=== PATIENT | female | born 1960 | race Caucasian/White ===

== ENCOUNTER → 2017-08-30 | Outpatient (CLI) | payer OTHER ==
[2017-09-01 11:39] LABS: HPV Genotype 16 Not Detected (NOTDET); HPV Genotype 18 Not Detected (NOTDET)
[2017-09-11 10:31] LABS: HPV High Risk Other Not Detected (NOTDET)
== END | disposition home or self-care (01) ==
LOC: OLS 13:52
PROVIDERS: Nurse Practitioner Women's Health
DX: Z12.4 Encounter for screening for malignant neoplasm of cervix (principal); Z91.89 Other specified personal risk factors, not elsewhere classified
CPT/HCPCS: 87624; G0123

== ENCOUNTER → 2018-08-31 | Outpatient (CLI) | payer OTHER ==
[2018-09-04 15:09] LABS: HPV 16 Negative (Negative); HPV 18 Negative (Negative); HPV OTHER HR TYPES Negative (Negative)
== END | disposition home or self-care (01) ==
LOC: LAB SHORT 12:54 → LAB 12:54
PROVIDERS: Nurse Practitioner Women's Health
DX: Z12.4 Encounter for screening for malignant neoplasm of cervix (principal); Z91.89 Other specified personal risk factors, not elsewhere classified
CPT/HCPCS: 87624; G0123

== ENCOUNTER → 2019-06-13 | Outpatient (CLI) | payer OTHER | END | disposition home or self-care (01) | LOC: PLD 12:13 → LAB SHORT 12:13 | DX: N95.0 Postmenopausal bleeding (principal) | CPT/HCPCS: 88305 ==

== ENCOUNTER 2020-07-09 06:07 | Inpatient (IN) | payer OTHER ==
[2020-07-07 15:04] LABS: BASOPHILS ABSOLUTE AUTO 0.03 K/mm3 (0.00-0.23); BASOPHILS PERCENT AUTO 1 % (0-2); EOSINOPHILS ABSOLUTE AUTO 0.13 K/mm3 (0.00-0.68); EOSINOPHILS PERCENT AUTO 2 % (0-6); Hemoglobin 14.3 g/dL (11.5-16.0); IMMATURE GRAN ABSOLUTE AUTO 0.04 K/mm3 (0.00-0.10); IMMATURE GRAN PERCENT AUTO 1 % (0-1); LYMPHOCYTES ABSOLUTE AUTO 2.33 K/mm3 (0.84-5.20); LYMPHOCYTES PERCENT AUTO 37 % (21-46); MONOCYTES ABSOLUTE AUTO 0.67 K/mm3 (0.16-1.47); MONOCYTES PERCENT AUTO 11 % (4-13); Mean Corpuscular HGB 30.3 pg (26.0-34.0); Mean Corpuscular HGB Conc 31.8 g/dL (31.5-36.5); Mean Corpuscular Volume 95 fL (80-100); Mean Platelet Volume 10.3 fL (9.1-12.4); NEUTROPHILS ABSOLUTE AUTO 3.13 K/mm3 (1.96-9.15); NEUTROPHILS PERCENT AUTO 49 % (41-73); Platelet Count 284 K/mm3 (150-400); RDW Coefficient Variation 13.3 % (11.7-14.2); Red Blood Cell Count 4.72 M/mm3 (3.80-5.20); White Blood Cell Count 6.33 K/mm3 (4.00-11.30)
[~2020-07-09] VITALS: Ht 157.5 cm; Wt 98.4 kg
[~2020-07-09 06:07] MED LIST: BUPROPION HCL100 MG PO; DHEA PO; GABA300 PO; L-METHYLFOLATE15 MG PO; LAMO100 PO; MELADOX3 MG PO; Naltrexone HCl50 MG PO; PROG100 PO; VITAMIN D310 MC4 PO; VIVELLE DOT TD
--- NOTE | 2020-07-09 06:52 | NUR ---
Ambulatory in Day Surgery History, Chart, Medications and Allergies reviewed before start of procedure. Lungs clear T/O to Auscultation. Pre-Op teaching done. Pt verbalizes understanding.
--- NOTE | 2020-07-09 14:30 | NUR ---
PT TRANSFERRED TO UNIT VIA OWN BED, DROWSY, AWAKENS AND ANSWERS QUESTIONS APPROPRIATELY, ORINETED X 4, DENIES PAIN, DENIES NAUSEA. POST OP VS COMMENCED AND STABLE. PT'S IN ROOM. PAS IN PLACE. MIDLINE INCISION C/D/I OPEN TO AIR WITH DERMATBOND, LLQ INCISION C/D/I OPEN TO AIR WITH DERMABOND. PERIPAD WITH SMALL MATEO RED DRAINAGE
--- NOTE | 2020-07-09 18:21 | NUR ---
wondermaria t rounding on pt
--- NOTE | 2020-07-09 18:33 | NUR ---
shift summary: post op vss, no acute changes. pt remained a/o x 4, slightly drowsy, awakens to verbal stimuli. pt uses GED INSTRUCTOR appropriately, states this is controlling her pain. pt denies any n/v, tolerating liquids. goldstein catheter patent/draining clear yellow urine. small amount vaginal bleeding on samuel pad. midline incision as well as llq incision c/d/i with small amount dried draining, closed with wound glue and open to air
[2020-07-10 05:03] LABS: Hematocrit 37.3 % (33.0-51.0); Hemoglobin 11.9 g/dL (11.5-16.0); Mean Corpuscular HGB 30.9 pg (26.0-34.0); Mean Corpuscular HGB Conc 31.9 g/dL (31.5-36.5); Mean Corpuscular Volume 97 fL (80-100); Mean Platelet Volume 10.3 fL (9.1-12.4); Platelet Count 246 K/mm3 (150-400); RDW Coefficient Variation 14.3 % (11.7-14.2); RDW Standard Deviation 50.8 fL (35.1-46.3); Red Blood Cell Count 3.85 M/mm3 (3.80-5.20); White Blood Cell Count 13.23 K/mm3 (4.00-11.30)
--- NOTE | 2020-07-10 05:23 | NUR ---
SHIFT SUMMARY LYING IN SEMI FOWLERS WITH EYES CLOSED. AAO X4, RIVAS, FOLLOWS ALL COMMANDS. HAS BEEN VERY PLEASANT AND COOPERATIVE. NO SIGNIFICANT CHANGES SINCE START OF SHIFT. PAIN WELL MANAGED WITH MORPHINE DIVISIONAL MERCHANDISING MANAGER. HAS NOT REQUIRED BREAKTHROUGH OR N/V MEDS THIS SHIFT. MIDLINE AND LAP INCISIONS CLOSED WITH DERMABOND ARE WELL APPROXIMATED WITH EDGES INTACT. JAMES CATH DRAINING CLEAR YELLOW URINE TO GRAVITY. DENIES FURTHER NEEDS OR WANTS AT THIS TIME. SAFETY MEASURES IN PLACE. WILL GIVE HAND OFF TO ONCOMING SHIFT USING SBAR.
[2020-07-10 05:33] LABS: BAND PERCENT MAN 14 % (0-8); BASOPHILS PERCENT MAN 0 % (0-2); EOSINOPHILS PERCENT MAN 0 % (0-6); LYMPHOCYTES ABSOLUTE MAN 1.58 K/mm3 (0.84-5.20); LYMPHOCYTES PERCENT MAN 12 % (21-46); MONOCYTES ABSOLUTE MAN 1.71 K/mm3 (0.16-1.47); MONOCYTES PERCENT MAN 13 % (4-13); NEUTROPHILS ABSOLUTE MAN 9.92 K/mm3 (1.96-9.15); SEG NEUTROPHILS PERCENT MAN 61 % (41-73); TOTAL CELLS COUNTED 100
--- NOTE | 2020-07-10 08:00 | NUR ---
pt awake laying in bed denies n/v no flatus taking in cl diet talked with pt if she has any nausea to call and to quit eating and drinking pain is 4/10 with textile clothing and footwear mechanic midline with dermabond c/d/i with mild bruise
--- NOTE | 2020-07-10 13:55 | NUR ---
pt oob to chair abd rajesh placed meds given as sched
--- NOTE | 2020-07-10 15:55 | NUR ---
pt visiting with spouse
--- NOTE | 2020-07-10 17:10 | NUR ---
po gas x given filled up pt's water talked with pt about amb in hallway next time she sits up
--- NOTE | 2020-07-10 17:42 | NUR ---
still no nausea or gas on cl diet pt given some popsicle for variety
--- NOTE | 2020-07-11 04:11 | NUR ---
PATIENT WOKE WITH ABDOMINAL PAINS AND A HEADACHE. MEDICATED WITH SIMETHICONE AND TORADOL. PATIENT IS NOW RESTING WITH HOB NEARLY FLAT. JAMES CATH DRAINING WELL. PATIENT IS ABLE TO ADJUST TO POC. 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 CALL LIGHT IN REACH.
[2020-07-11 04:58] LABS: BASOPHILS ABSOLUTE AUTO 0.03 K/mm3 (0.00-0.23); BASOPHILS PERCENT AUTO 0 % (0-2); EOSINOPHILS ABSOLUTE AUTO 0.13 K/mm3 (0.00-0.68); EOSINOPHILS PERCENT AUTO 1 % (0-6); Hematocrit 29.7 % (33.0-51.0); Hemoglobin 9.4 g/dL (11.5-16.0); IMMATURE GRAN ABSOLUTE AUTO 0.06 K/mm3 (0.00-0.10); IMMATURE GRAN PERCENT AUTO 1 % (0-1); LYMPHOCYTES ABSOLUTE AUTO 1.31 K/mm3 (0.84-5.20); LYMPHOCYTES PERCENT AUTO 13 % (21-46); MONOCYTES ABSOLUTE AUTO 0.72 K/mm3 (0.16-1.47); MONOCYTES PERCENT AUTO 7 % (4-13); Mean Corpuscular HGB 30.5 pg (26.0-34.0); Mean Corpuscular HGB Conc 31.6 g/dL (31.5-36.5); Mean Corpuscular Volume 96 fL (80-100); Mean Platelet Volume 10.6 fL (9.1-12.4); NEUTROPHILS ABSOLUTE AUTO 7.73 K/mm3 (1.96-9.15); NEUTROPHILS PERCENT AUTO 78 % (41-73); Platelet Count 196 K/mm3 (150-400); RDW Coefficient Variation 14.2 % (11.7-14.2); RDW Standard Deviation 50.1 fL (35.1-46.3); Red Blood Cell Count 3.08 M/mm3 (3.80-5.20); White Blood Cell Count 9.98 K/mm3 (4.00-11.30)
--- NOTE | 2020-07-11 16:19 | NUR ---
DR BOSWELL AND DR VELAZQUEZ BEEN TO SEE PT TODAY.
--- NOTE | 2020-07-11 17:41 | NUR ---
SHIFT SUMMARY PT EATING AND DRINKING, TOLERATING F.L. DIET THIS EVENING. PT REPORTS PASSING GAS TODAY. PT BEEN UP AMBULATING IN ROOM MULT TIMES TODAY. PT BEEN ASSISTED WITH ADL'S PRN. DISCUSSED PAIN MGMT AND SWITCHING TO PO PAIN MED, REPORTED WOULD START THIS EVENING WITH DINNER. ENC I/S. I/O OF ROOM TODAY. PT HAD JAMES DC'D TODAY AND HAS BEEN VOIDING FREQUENTLY. PT IVF AT TKO.
--- NOTE | 2020-07-12 06:40 | NUR ---
PATIENT HAS A CHRONIC COUGH THAT HAS BEEN TREATED WITH GABAPENTIN MOST RECENTLY. SHE ALSO USES RICOLA SUGAR FREE COUGH DROPS TO HELP WITH THE THROAT IRRITATION. THE PATIENT HAS HAD A INCREASED COUGH TONIGHT, PATIENT AGREED THAT THE COUGH DID SOUND MORE ANGRY THAT NORMAL. sHE IS NOTICING RED STREAKED MUCUS. 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 UP INDEPENDENT IN ROOM TO BR. CALL LIGHT IN REACH.
--- NOTE | 2020-07-12 12:12 | NUR ---
DR WONDERLY RECENLTLY HERE, REPORTS WILL WRITE D/C ORDERS. DR VELAZQUEZ HERE TO SEE PT EARLIER WHO STATED PT MAY D/C TODAY FROM HIS STANDPOINT.
[2020-07-12] MEDS ORDERED: DOCU100 PO (13:30)
[2020-07-12] MEDS ORDERED: Percocet 5-3251 EACH PO (13:30)
[2020-07-12] MEDS ORDERED: PROM25 PO (13:31)
[2020-07-12] MEDS ORDERED: SULTRIDS PO (13:31)
[2020-07-12] MEDS ORDERED: SENN187 PO (13:32)
[2020-07-12] MEDS ORDERED: IBUP400 PO (13:32)
[2020-07-12] MEDS ORDERED: SIME80CH PO (13:32)
--- NOTE | 2020-07-12 13:56 | NUR ---
DISCHARGE PT EDUCATED ON AND RECEIVED PRINTED DISCHARGE INSTRUCTIONS AND VERBALIZED AN UNDERSTANDING. NEW RX FAXED TO [facility] AND HARD RX FOR PERCOCET GIVEN TO PT. SKYS DC'D BY PRIMARY RN. PT GATHERED ALL PERSONAL BELONGINGS AND ESCORTED OUT VIA W/C WITH AT SIDE.
--- NOTE | 2020-07-12 14:00 | NUR ---
DISCHARGE: PT EATING AND DRINKING, PASSING GAS. VOIDING. PT DISCHARGED. IV'S OUT WNL. PT GETTING RIDE HOME FROM . PT REPORTS HAVING BELONGINGS AND PAPERWORK INCLUDING SCRIPT, OTHER MEDS SENT TO PHARMACY OF PT'S CHOICE.
== END 2020-07-12 14:00 | disposition home or self-care (01) | DRG 742 ==
LOC: ORD 06:07 → ORSCMMR 06:07 → ORD 07:30 → SURS 12:59 → ORSCMMR 14:14 → SURS 07-12 14:00
PROVIDERS: ADMIT Obstetrics & Gynecology
PROC: 0UT90ZZ Resection of Uterus, Open Approach (ICD-10-PCS; principal; 2020-07-10)
PROC: 0UT70ZZ Resection of Bilateral Fallopian Tubes, Open Approach (ICD-10-PCS; 2020-07-10)
PROC: 0UT20ZZ Resection of Bilateral Ovaries, Open Approach (ICD-10-PCS; 2020-07-10)
PROC: 0DQL0ZZ Repair Transverse Colon, Open Approach (ICD-10-PCS; 2020-07-10)
PROC: 8E0W0CZ Robotic Assisted Procedure of Trunk Region, Open Approach (ICD-10-PCS; 2020-07-10)
DX: D25.0 Submucous leiomyoma of uterus (principal); K91.72 Accidental puncture and laceration of a digestive system organ or structure during other procedure; Z87.891 Personal history of nicotine dependence; Y76.3 Surgical instruments, materials and obstetric and gynecological devices (including sutures) associated with adverse incidents; Y92.234 Operating room of hospital as the place of occurrence of the external cause
CPT/HCPCS: 36415; 85025; 86850; 86900; 86901; 88307; 94760; A9270; J0295; J0690; J1100; J1650; J1885; J2270; J2370; J2405; J2550; J2704; J2765; J3010; J7120

== ENCOUNTER 2020-07-26 12:18 | Emergency (ER) | payer OTHER ==
[~2020-07-26] VITALS: Ht 157.5 cm; Wt 95.7 kg
[~2020-07-26 12:18] MED LIST changes: +DOCU100 PO; +IBUP400 PO; +PROM25 PO; +Percocet 5-3251 EACH PO; +SENN187 PO; +SIME80CH PO; +SULTRIDS PO
[2020-07-26 13:19] LABS: Source, Urine Voided
[2020-07-26 13:23] LABS: Bilirubin, Urine Neg (Neg); Blood, Urine 1+ (Neg); Color, Urine Yellow (P-Yellow); Glucose Qualitative, Urine Neg (Neg); Ketones, Urine 1+ (Neg); Leukocyte Esterase, Urine 1+ (Neg); Nitrite, Urine Neg (Neg); Protein, Urine 2+ (Neg); Urobilinogen, Urine 1+ (Normal)
[2020-07-26 13:27] LABS: BASOPHILS ABSOLUTE AUTO 0.05 K/mm3 (0.00-0.23); BASOPHILS PERCENT AUTO 1 % (0-2); EOSINOPHILS ABSOLUTE AUTO 0.15 K/mm3 (0.00-0.68); EOSINOPHILS PERCENT AUTO 2 % (0-6); Hematocrit 35.7 % (33.0-51.0); Hemoglobin 11.3 g/dL (11.5-16.0); IMMATURE GRAN ABSOLUTE AUTO 0.08 K/mm3 (0.00-0.10); IMMATURE GRAN PERCENT AUTO 1 % (0-1); LYMPHOCYTES ABSOLUTE AUTO 2.12 K/mm3 (0.84-5.20); LYMPHOCYTES PERCENT AUTO 28 % (21-46); MONOCYTES ABSOLUTE AUTO 1.12 K/mm3 (0.16-1.47); MONOCYTES PERCENT AUTO 15 % (4-13); Mean Corpuscular HGB 29.9 pg (26.0-34.0); Mean Corpuscular HGB Conc 31.7 g/dL (31.5-36.5); Mean Corpuscular Volume 94 fL (80-100); Mean Platelet Volume 9.4 fL (9.1-12.4); NEUTROPHILS PERCENT AUTO 55 % (41-73); Platelet Count 595 K/mm3 (150-400); RDW Coefficient Variation 13.6 % (11.7-14.2); RDW Standard Deviation 47.1 fL (35.1-46.3); Red Blood Cell Count 3.78 M/mm3 (3.80-5.20); White Blood Cell Count 7.72 K/mm3 (4.00-11.30)
[2020-07-26 13:46] LABS: Alanine Aminotransfer (ALT/SGP 11 U/L (12-78); Albumin, Blood 3.7 g/dL (3.4-5.0); Albumin/Globulin Ratio 0.9 (0.8-1.8); Alk Phos 107 U/L (50-136); Anion Gap 6 mmol/L (6-16); Aspartate Aminotrans (AST/SGOT 16 U/L (12-37); Bilirubin, Total 0.2 mg/dL (0.1-1.0); Blood Urea Nitrogen 11 mg/dL (8-24); Bun/Creatinine Ratio 14.3 (12.0-20.0); CO2, Blood 28 mmol/L (21-32); Calcium, Blood 9.1 mg/dL (8.5-10.1); Chloride, Blood 108 mmol/L (98-108); Creatinine, Blood 0.77 mg/dL (0.40-1.00); Globulin, Blood 4.1 g/dL (2.2-4.0); Glomerular Filtration Rate >60 (60-); Glucose, Blood 109 mg/dL (70-99); Sodium, Blood 142 mmol/L (136-145); Total Protein, Blood 7.8 g/dL (6.4-8.2)
[2020-07-26 13:51] LABS: Appearance, Urine Hazy (Clear)
[2020-07-26 13:55] LABS: Bacteria Few /hpf; Mucus Mod (0-Heavy); Squamous Epithelial Cells Mod /hpf (Few)
== END 2020-07-26 15:30 | disposition home or self-care (01) ==
LOC: ER 12:18
PROVIDERS: Emergency Medicine
DX: L76.34 Postprocedural seroma of skin and subcutaneous tissue following other procedure (principal); R10.9 Unspecified abdominal pain; E78.5 Hyperlipidemia, unspecified; F32.9 Major depressive disorder, single episode, unspecified; Z90.710 Acquired absence of both cervix and uterus; Z88.5 Allergy status to narcotic agent; Z79.899 Other long term (current) drug therapy; Z87.891 Personal history of nicotine dependence; Y83.8 Other surgical procedures as the cause of abnormal reaction of the patient, or of later complication, without mention of misadventure at the time of the procedure; Y83.9 Surgical procedure, unspecified as the cause of abnormal reaction of the patient, or of later complication, without mention of misadventure at the time of the procedure
CPT/HCPCS: 74177; 80053; 81001; 85025; 87086; 96374-59; 96375; 99284-25; J1170; J2405; J7030; Q9967

== ENCOUNTER 2021-04-12 11:06 | Day surgery (SDC) | payer OTHER | END 2021-04-12 17:15 | disposition home or self-care (01) | LOC: ATC 11:06 | DX: U07.1 COVID-19 (principal); J45.991 Cough variant asthma; E78.5 Hyperlipidemia, unspecified | CPT/HCPCS: 96365; Q0243 ==

== ENCOUNTER 2021-09-03 08:24 | Day surgery (SDC) | payer OTHER ==
[~2021-09-03] VITALS: Ht 157.5 cm; Wt 90.1 kg
[2021-09-03] MEDS ORDERED: [UNRECOGNIZED DRUG - OTHER] (09:07)
== END 2021-09-03 11:00 | disposition home or self-care (01) ==
LOC: ORSCSDS 08:24
PROVIDERS: Surgery
PROC: 0DJD8ZZ Inspection of Lower Intestinal Tract, Via Natural or Artificial Opening Endoscopic (ICD-10-PCS; principal; 2021-09-03 09:45)
DX: Z12.11 Encounter for screening for malignant neoplasm of colon (principal); Z86.010 Personal history of colon polyps; G47.33 Obstructive sleep apnea (adult) (pediatric); E78.5 Hyperlipidemia, unspecified; F31.9 Bipolar disorder, unspecified; J45.909 Unspecified asthma, uncomplicated; E66.9 Obesity, unspecified; Z68.36 Body mass index [BMI] 36.0-36.9, adult; Z87.891 Personal history of nicotine dependence; Z79.899 Other long term (current) drug therapy
CPT/HCPCS: J2405; J2704; J7120